=== PATIENT | female | born 1960 | race Caucasian/White ===

== ENCOUNTER 2020-08-16 13:43 | Outpatient (CLI) | payer OTHER ==
[2020-08-16 15:11] LABS: Anion Gap 15 mmol/L (10-20); BUN (Urea Nitrogen) 16 mg/dL (9.8-20.1); Calc. Creatinine Clearance 0 mL/min (70-130); Calcium 9.3 mg/dL (7.8-10.44); Carbon Dioxide 24 mmol/L (23-31); Chloride 106 mmol/L (98-107); Glucose 87 mg/dL (80-115); Potassium 4.3 mmol/L (3.5-5.1); Sodium 141 mmol/L (136-145)
[2020-08-16 15:43] LABS: #Basophils 0.1 10x3/uL (0.0-0.2); #Eosinphils 0.1 10x3/uL (0.0-0.5); #Monocytes 0.3 10x3/uL (0.0-1.1); %Basophils 1.1 % (0.0-2.0); %Eosinophils 2.7 % (0.0-6.0); %Lymphocytes 28.7 % (18.0-47.0); %Monocytes 7.5 % (0.0-10.0); Hemoglobin 12.6 g/dL (12.0-15.5); Mean Corpuscular HGB CONC 33.2 g/dL (32.0-36.0); Mean Corpuscular Hemoglobin 30.1 pg (27.0-33.0); Mean Corpuscular Volume 90.7 fl (81.6-98.3); Mean Platelet Volume 10.9 fl (7.4-10.4); Platelet Count 243 10x3/uL (150-450); RBC Distribution Width 12.5 % (11.5-14.5); Red Blood Cell (RBC) Count 4.18 10x6/uL (3.90-5.03); White Blood Cell (WBC) Count 4.4 10x3/uL (3.5-10.5)
[2020-08-16 15:53] LABS: #Neutrophils 2.6 10x3/uL (1.5-8.4)
[2020-08-17 04:50] LABS: SARS-CoV-2 PCR by NAA Not Detected (NotDetected)
== END 2020-08-16 13:44 | disposition home or self-care (01) ==
LOC: CSHLAB 13:43
PROVIDERS: ATTEND Podiatrist Foot & Ankle Surgery
DX: Z01.818 Encounter for other preprocedural examination (principal); Z20.822 Contact with and (suspected) exposure to COVID-19; M21.612 Bunion of left foot; M25.375 Other instability, left foot; M77.42 Metatarsalgia, left foot; M20.42 Other hammer toe(s) (acquired), left foot; R94.31 Abnormal electrocardiogram [ECG] [EKG]
CPT/HCPCS: 80048; 85025; 87635; 93005; 93010; U0003; U0005

== ENCOUNTER 2020-08-19 10:49 | Day surgery (SDC) | payer OTHER ==
[2020-08-17 15:11] VITALS: BMI 26.7
[2020-08-19] MEDS ORDERED: Lidocaine 2% MPF 10 ML AMP (For Epidural Use) ONE (11:24)
[2020-08-19] MEDS ORDERED: Bupivacaine PF 0.5% 30 ML VIAL ONE (11:25)
[2020-08-19] MEDS ORDERED: Neomycin-Polymyxin 1 ML AMP ONE (11:25)
[2020-08-19] MEDS ORDERED: PROPOFOL 20 ML ONE ×2 (12:38→13:35)
[2020-08-19] MEDS ORDERED: Ondansetron PF 4 MG/2 ML Vial ONE (12:39)
[2020-08-19] MEDS ORDERED: Lidocaine 1% MPF 2 ML VIAL ONE (12:39)
[2020-08-19] MEDS ORDERED: Ketorolac Tromethamine 30 MG/ML VIAL ONE (12:39)
[2020-08-19] MEDS ORDERED: Lidocaine 1% PF 5 ML VIAL ONE (12:39)
[2020-08-19] MEDS ORDERED: Fentanyl 100 MCG/2 ML VIAL ONE ×2 (12:39→13:36)
[2020-08-19] MEDS ORDERED: Dexamethasone 20 MG/5 ML VIAL ONE (12:39)
[2020-08-19] MEDS ORDERED: Midazolam HCl 2 mg/2 ml Vial ONE (12:39)
[2020-08-19] MEDS ORDERED: Ondansetron PF 4 MG/2 ML Vial IVP PRN (13:30)
[2020-08-19] MEDS ORDERED: Zolpidem Tartrate 5 MG TAB PO PRN (13:30)
[2020-08-19] MEDS ORDERED: Promethazine HCl 25 MG/ML VIAL IM PRN (13:30)
[2020-08-19] MEDS ORDERED: PHENYLEPHRINE-NS 100 MCG/ML 10 ML SYRINGE ONE (13:47)
[2020-08-19] MEDS ORDERED: Glycopyrrolate 0.2 MG/ML 5 ML SYRINGE ONE (13:47)
[2020-08-19] MEDS ORDERED: Ropivacaine 0.2% 550 ML 550 ML NERVE BLCK SCH (14:00)
[2020-08-19] MEDS ORDERED: ePHEDrine 50 MG/ML VIAL ONE (14:36)
== END 2020-08-19 18:05 | disposition home or self-care (01) ==
LOC: CSHSDC 10:49
PROVIDERS: ATTEND Podiatrist Foot & Ankle Surgery
PROC: 0SGK04Z Fusion of Right Tarsometatarsal Joint with Internal Fixation Device, Open Approach (ICD-10-PCS; principal; 2020-08-19)
PROC: 0LNV0ZZ Release Right Foot Tendon, Open Approach (ICD-10-PCS; principal; 2020-08-19)
DX: M20.11 Hallux valgus (acquired), right foot (principal); M05 Rheumatoid arthritis with rheumatoid factor; M25.572 Pain in left ankle and joints of left foot; M77.42 Metatarsalgia, left foot; M20.41 Other hammer toe(s) (acquired), right foot; M21.621 Bunionette of right foot
CPT/HCPCS: 76000; A4306; C1713; J1100; J1885; J2250; J2405; J2704; J2795; J3010; J3490; S0020

== ENCOUNTER 2023-11-18 14:37 | Outpatient (CLI) | payer MEDICARE, OTHER | END 2023-11-18 14:38 | disposition home or self-care (01) | LOC: CSHMAMMO 14:37 | PROVIDERS: ATTEND Family Medicine | DX: Z12.31 Encounter for screening mammogram for malignant neoplasm of breast (principal); Z13.820 Encounter for screening for osteoporosis; M85.851 Other specified disorders of bone density and structure, right thigh; M85.852 Other specified disorders of bone density and structure, left thigh; Z78.0 Asymptomatic menopausal state | CPT/HCPCS: 77063; 77067; 77080 ==